=== PATIENT | male | born 1940 | race Hispanic/Latino ===

== ENCOUNTER 2021-05-23 06:32 | Observation (INO) | payer MEDICARE ==
[2021-05-23] MEDS ORDERED: ASPIRIN EC 325 MG TAB PO ONE (07:08)
[2021-05-23] MEDS ORDERED: SODIUM CHLORIDE 0.9% 1000 ML 1,000 ML IV SCH ×2 (07:15→12:30)
[2021-05-23] MEDS ORDERED: SODIUM CHLORIDE 0.9% 500 ML 500 ML IV SCH (08:00)
--- NOTE | 2021-05-23 08:36 | Short Stay Summary ---
Short Stay Documentation Date of service: 05/23/21 - History Principal diagnosis: Angina H&P: obtained from office Past Medical History: atrial fib, CAD, hypertension, hyperlipidemia, PVD, renal failure Past Surgical History: CABG, PTCA, Other (PPM), no valve replacement Social history: no smoking, no alcohol abuse - Allergies and Medications Current Medications: Allergies furosemide [From Lasix] Allergy (Verified 05/23/21 07:08) Muscle cramps naproxen Allergy (Verified 05/23/21 07:08) Bleeding Active Medications Sodium Chloride (Nacl 0.9% 1000 Ml) 1,000 mls @ 100 mls/hr IV DIRECT CANDACE Last Admin: 05/23/21 07:25 Dose: 100 mls/hr Documented by: - Physical exam General appearance: no acute distress Integumentary: no rash HEENT: Atraumatic, EOMI, Mucous membr. moist/pink Lungs: Clear to auscultation Heart: Normal S1, Normal S2, No murmurs Gastrointestinal: normal Extremities: pulses intact, No edema Neurological: Normal speech, Normal tone, Sensation intact - Brief post op/procedure progress note Date of procedure: 05/23/21 Pre-op diagnosis: CAD Post-op diagnosis: same Surgeon: SUSSY OLUIS Estimated blood loss: minimal Pathology: none Condition: stable - Hospital course Hospital course: Pt presented for elective [facility] today. Procedure performed via groin approach by Dr. Louis. S/p PCI of SVG-PDA. Pt tolerated well. Currently stable with no complaints. Anticipate discharge in AM. Follow-up with Dr. Louis on 07/04/2021 @ 2:15pm ([phone]). - Disposition Condition at discharge: Good Disposition: 01 HOME / SELF CARE / HOMELESS - Discharge Diagnoses (1) CAD (coronary artery disease) Status: Chronic Short Stay Discharge Plan Activity: advance as tolerated Diet: low fat, low cholesterol, low salt Wound: per your surgeon's advice Follow up with: ZANE BROOKS MD [Primary Care Provider] - 7 Days SUSSY LOUIS MD [Staff Physician] - 7 Days
[2021-05-23] MEDS ORDERED: HEPARIN/NS 5000 UNIT/500ML 1,000 ML IR ONE (08:42)
[2021-05-23] MEDS ORDERED: LIDOCAINE (2%) 20 MG/1 ML VIAL 20 ML MDV INFILTRATI ONE (08:43)
[2021-05-23] MEDS ORDERED: NITROGLYCERIN SYRINGE 3 ML ONE (08:43)
[2021-05-23] MEDS: fentaNYL 100 MCG/2 ML INJ ONE ×2 (09:00→09:27)
[2021-05-23] MEDS: MIDAZOLAM 2 MG/2 ML INJ ONE ×2 (09:02→09:27)
[2021-05-23] MEDS: LIDOCAINE (2%) 20 MG/1 ML VIAL 20 ML MDV INFILTRATI ONE ×2 (09:02→09:31)
[2021-05-23] MEDS ORDERED: ATROPINE 0.1% (1 MG/10 ML) CARDIAC SYRINGE ONE (09:10)
--- NOTE | 2021-05-23 09:22 | Electrocardiograph Report ---
[facility] Test Date: 2021-05-23 Test Time: 07:44:21 Pat Name: CHARLIE NORWOOD JR Department: Room: Gender: M Passenger Service Manager: ALEXANDRE : 1940 Requested By: SUHAIL LOUIS Order Number: [id number] Reading MD: Suhail Louis Measurements Intervals [place] Rate: 40 P: 0 [place]: 296 QRS: -71 QRSD: 185 T: 126 QT: 566 QTc: 461 Interpretive Statements Atrial-sensed ventricular-paced rhythm No previous ECG available for comparison Electronically Signed On 05-23-2021 9:22:22 EDT by Suhail Louis
[2021-05-23] MEDS: HEPARIN 10,000 UNITS/10 ML VIAL ONE ×2 (09:55→10:02)
[2021-05-23] MEDS ORDERED: HEPARIN/NS 5000 UNIT/500ML 500 ML IR ONE (10:06)
[2021-05-23] MEDS ORDERED: CLOPIDOGREL 300 MG TAB ONE (10:11)
[2021-05-23] MEDS ORDERED: HYDROcodone/ACETAMINOPHEN 5-325 MG TAB PO PRN (10:41)
[2021-05-23] MEDS ORDERED: traMADol 50 MG TAB PO PRN (10:41)
[2021-05-23] MEDS ORDERED: ACETAMINOPHEN 325 MG TAB PO PRN (11:30)
[2021-05-23] MEDS ORDERED: ONDANSETRON 4 MG/2 ML INJ IV PRN (12:00)
--- NOTE | 2021-05-23 12:33 | Cardiac Catherization Report ---
DATE OF SERVICE: 05/23/2021 This is a left heart catheterization with vein graft and arterial graft angiography with PCI of the vein graft to PDA being done on 05/23/2021. INDICATIONS: The patient is an 81-year-old gentleman with a history of 4-vessel bypass in early 1999 and had a PCI in 2019 of his SVG to PDA with a drug-eluting Resolute 2.5 x 38. The patient has a patent OLEARY to LAD with an occluded SVG to OM and SVG to ramus, has atrial fibrillation, here with persistent angina, Morrill classification III despite medical therapy. The patient has atrial fibrillation with a functioning pacemaker, not on oral anticoagulation secondary to the patient's choice and hyperlipidemia, not on cholesterol lowering agents as per the patient's choice. Procedure was done with moderate sedation, started at 09:27, finished at 10:15. This is 48 minutes of moderate sedation. DESCRIPTION OF PROCEDURE: Procedure was done via the right common femoral artery, sterile technique, local anesthesia, 5 [place]oc[place] groin sheath inserted. Left system engaged with a JL4 catheter. Left main is a medium caliber vessel, patent. LAD is a medium caliber vessel, proximal mild luminal irregularities, mid 95%. I see competitive flow. Circumflex small caliber vessel, patent. Ramus small to medium caliber vessel, patent. Circumflex small to medium caliber vessel, proximal and mid 100%. OLEARY engaged with an IM catheter. There is some mild subclavian stenosis, less than 10 mm of gradient, shows a large OLEARY that is patent from proximally and distally that feeds into the mid LAD, that feeds into a diagonal 2 and the rest of the LAD. SVG to OM and SVG to ramus are occluded. RCA engaged JR4 catheter, medium caliber vessel, mid 100%. SVG to PDA engaged with an AR catheter. Medium caliber graft mid in-stent restenosis, proximally 95% lesion. So LV gram done in ICELANDIC and HOGAN view shows mild borderline LV function, EF 45-50%. LVEDP 23 mmHg, LV is 141, aortic is 141/49. No gradient across the aortic valve on pullback. So percutaneous coronary intervention of the SVG to PDA for in-stent restenosis: 1. Changed out the 5 Moroccan groin sheath for a 6 [place]occan groin sheath. 2. SVG to PLV engaged with an AR1 guiding catheter. 3. Crossed into the distal PLV through the graft with a short [place] wire. 4. Predilated with a 2.5 x 15 mm balloon x 2 inflations. Unable to deliver a distal protection device secondary to stenosis. 5. Stented the proximal portion of the stent with a drug-eluting Resolute 2.5 x 12 overlapping with the previously deployed stent and inflated at 16 atmospheres. 6. Then used a noncompliant balloon 2.5 x 15 x 2 inflations at 18 atmospheres in the proximal mid portion of the stent. 7. Excellent angiographic result, REIC 3 flow, reduced stenosis from 95% down to zero, calcified vein graft is noted. 8. A 6-Moroccan guiding catheter taken over a guidewire, 6 Moroccan groin sheath sewn in. No hematoma, no bleeding. SUMMARY: 1. Successful PCI of the SVG to PLV and PDA for in-stent restenosis in the mid portion of the graft with a drug-eluting Resolute 2.5 x 12 overlapping the previously deployed stent 2.5 x 38, postdilated with a 2.5 x 15 noncompliant balloon. 2. OLEARY to LAD is patent. 3. Occluded SVG graft to OM and ramus. Left main patent. LAD mid 95% with competitive flow. Ramus small to medium caliber vessel patent. Circ mid 100%, RCA mid 100%. Borderline LV function. The patient will be continuing dual antiplatelet therapy. Discussed with the patient and the patient's family in detail. TID: [id number] RECEIPT: [id number] VRColin/SHE
[2021-05-23] MEDS: RANOLAZINE ER 500 MG TAB 12HR PO SCH (22:10)
[2021-05-24 08:37] LABS: Calcium 9.5 mg/dL (8.4-10.2)
[2021-05-24 09:32] VITALS: BP 156/46
[2021-05-24] MEDS: RANOLAZINE ER 500 MG TAB 12HR PO SCH (09:43)
[2021-05-24] MEDS ORDERED: METOPROLOL SUCCINATE XL 25 MG TAB PO SCH (10:00)
[2021-05-24] MEDS ORDERED: CLOPIDOGREL 75 MG TAB PO SCH (10:00)
--- NOTE | 2021-05-24 10:40 | Progress Note ---
Assessment and Plan Stable cardiac status. OK to DC. - Patient Problems (1) CAD (coronary artery disease) Current Visit: Yes Status: Chronic Qualifiers: Coronary Disease-Associated Artery/Lesion type: [place] artery (2) Stented coronary artery Current Visit: Yes Status: Acute (3) Hx of CABG Current Visit: Yes Status: Chronic (4) Chronic atrial flutter Current Visit: Yes Status: Acute (5) Presence of permanent cardiac pacemaker Current Visit: Yes Status: Chronic (6) Hypertension Current Visit: Yes Status: Chronic Qualifiers: Hypertension type: primary hypertension Qualified Code(s): I10 - Essential (primary) hypertension Subjective Date of service: 05/24/21 Principal diagnosis: CAD, s/p PCI Interval history: No chest pain. Objective Vital Signs Temp Pulse Resp BP Pulse Ox 05/24/21 09:46 44 L 156/46 05/24/21 09:45 44 L 156/46 05/24/21 09:28 98.1 F 44 L 18 156/46 95 05/24/21 06:05 99.0 F 47 L 18 140/39 94 05/24/21 04:59 40 L 05/24/21 00:59 18 98 05/23/21 22:12 98.2 F 56 L 18 164/55 94 05/23/21 17:16 51 L 163/54 97 05/23/21 17:01 51 L 166/54 97 05/23/21 16:46 51 L 163/55 97 05/23/21 16:31 51 L 176/62 97 05/23/21 16:16 51 L 178/48 96 05/23/21 16:00 50 L 158/63 97 05/23/21 15:46 41 L 154/80 96 05/23/21 15:31 50 L 157/57 96 05/23/21 15:15 40 L 158/87 97 05/23/21 15:00 49 L 160/82 97 05/23/21 14:46 40 L 149/55 96 05/23/21 14:30 49 L 163/70 96 05/23/21 14:15 49 L 156/49 96 05/23/21 14:01 49 L 155/50 95 05/23/21 14:00 97 F L 05/23/21 13:55 40 L 154/45 96 05/23/21 13:00 40 L 24 163/64 98 08/13/21 12:59 18 97 05/23/21 12:30 40 L 21 140/43 96 05/23/21 12:00 40 L 19 140/45 96 05/23/21 11:45 40 L 20 143/41 96 05/23/21 11:30 40 L 17 134/48 95 05/23/21 11:15 40 L 17 148/54 95 05/23/21 11:00 40 L 21 147/54 95 05/23/21 10:45 40 L 22 139/46 95 05/23/21 10:40 97.9 F 40 L 20 139/49 94 - Physical Examination General: No Apparent Distress HEENT: Positive: EOMI, Normocephaly Neck: Positive: neck supple, trachea midline Cardiac: Positive: Reg Rate and Rhythm, Irregularly Regular, S1/S2 Lungs: Positive: clear to auscultation Neuro: Positive: Grossly Intact Abdomen: Positive: Soft, Active Bowel Sounds. Negative: Tender Skin: Positive: Clear. Negative: Rash Incision: Cardiac Cath Site (No hematoma) Musculoskeletal: Normal Range of Motion - Labs and Meds Comprehensive Metabolic Panel 05/24/21 Range/Units 07:53 Sodium 137 (137-145) mmol/L Potassium 5.1 H (3.6-5.0) mmol/L Chloride 100.8 (98-107) mmol/L Carbon Dioxide 29 (22-30) mmol/L BUN 13 (9-20) mg/dL Creatinine 1.3 (0.8-1.3) mg/dL Glucose 106 H (75-100) mg/dL Calcium 9.5 (8.4-10.2) mg/dL - Telemetry EKG Rhythm: Atrial Flutter (with CVR)
--- NOTE | 2021-05-26 10:50 | Electrocardiograph Report ---
[facility] Test Date: 2021-05-23 Test Time: 11:12:36 Pat Name: CHARLIE NORWOOD JR Department: Room: A459 Gender: M [employer] Operations Engineer: ALEXANDRE : 1940 Requested By: SUSSY CABRAL Order Number: [id number] Reading MD: Rob Ramirez Measurements Intervals [place] Rate: 40 P: 0 [place]: 185 QRS: -64 QRSD: 181 T: 124 QT: 577 QTc: 470 Interpretive Statements Ventricular-paced rhythm Compared to ECG 05/23/2021 07:44:21 No significant chage noted.Underlying most likely atrial fib/flutter. Electronically Signed On 05-26-2021 10:50:20 EDT by Rob Ramirez
== END 2021-05-24 11:30 | disposition home or self-care (01) ==
LOC: CATHLABREC 06:32 → 4A 11:30
PROVIDERS: ADMIT Internal Medicine; ATTEND Internal Medicine
DX: I25.110 Atherosclerotic heart disease of native coronary artery with unstable angina pectoris (principal); I10 Essential (primary) hypertension; I48.91 Unspecified atrial fibrillation; E78.5 Hyperlipidemia, unspecified; I73.9 Peripheral vascular disease, unspecified; I48.92 Unspecified atrial flutter; N19 Unspecified kidney failure; R00.2 Palpitations; Z95.1 Presence of aortocoronary bypass graft; Z79.899 Other long term (current) drug therapy; Z98.890 Other specified postprocedural states; Z95.0 Presence of cardiac pacemaker
CPT/HCPCS: 36415; 80048; 93005; 93459; 96360; 96361; C1725; C1769; C1874; C1887; C1894; C9604; G0378; J1644; J2250; J3010; J7030; 92937; J0461; Q9967